=== PATIENT | male | born 1965 | race Caucasian/White ===

== ENCOUNTER 2024-09-10 18:30 | Emergency (ER) | payer OTHER ==
[~2024-09-10] VITALS: Ht 180.3 cm; Wt 93.9 kg
[2024-09-10] MEDS ORDERED: ONDANSETRON ODT 4 MG TAB.RAPDIS ONE (20:39)
[2024-09-10] MEDS ORDERED: HYDROMORPHONE 1 MG/1 ML DISP.SYRIN ONE (20:39)
[2024-09-10] MEDS ORDERED: predniSONE 50 MG TABLET ONE (20:39)
[2024-09-10] MEDS: predniSONE 50 MG TABLET PO ONE (20:46)
[2024-09-10] MEDS: ONDANSETRON ODT 4 MG TAB.RAPDIS SL ONE (20:46)
[2024-09-10] MEDS: HYDROMORPHONE 1 MG/1 ML DISP.SYRIN IM ONE (20:47)
[2024-09-10 20:56] VITALS: BP 150/80; O2SAT 98
== END 2024-09-10 21:01 | disposition home or self-care (01) ==
LOC: ER 18:30
DX: M51.360 Other intervertebral disc degeneration, lumbar region with discogenic back pain only (principal); Z88.7 Allergy status to serum and vaccine
CPT/HCPCS: 99283; 96372; J1171; J7512; A4606; A4663; Q0162

== ENCOUNTER 2024-09-22 17:26 | Emergency (ER) | payer OTHER ==
[~2024-09-22] VITALS: Ht 180.3 cm; Wt 93.9 kg
[2024-09-22 18:15] VITALS: O2SAT 97
[2024-09-22] MEDS ORDERED: IBUP-1955 PO (18:29)
[2024-09-22] MEDS ORDERED: HYDR-3972 PO (18:29)
[2024-09-22] MEDS ORDERED: GABA300C PO (18:29)
== END 2024-09-22 18:36 | disposition home or self-care (01) ==
LOC: ER 17:36
DX: Z76.0 Encounter for issue of repeat prescription (principal); Z79.899 Other long term (current) drug therapy; Z88.7 Allergy status to serum and vaccine; Z60.2 Problems related to living alone; Z87.39 Personal history of other diseases of the musculoskeletal system and connective tissue
CPT/HCPCS: A4606; A4663

== ENCOUNTER 2024-10-06 19:13 | Emergency (ER) | payer OTHER ==
[~2024-10-06] VITALS: Ht 180.3 cm; Wt 95.3 kg
[~2024-10-06 19:13] MED LIST: GABA300C PO; HYDR-3972 PO; IBUP-1955 PO
[2024-10-06] MEDS ORDERED: HYDR-3972 PO (22:13)
[2024-10-06] MEDS ORDERED: GABA300C PO (22:13)
[2024-10-06] MEDS ORDERED: IBUP-1955 PO (22:13)
[2024-10-06] MEDS ORDERED: GABAPENTIN 300 MG CAPSULE ONE (22:14)
[2024-10-06] MEDS ORDERED: HYDROCODONE/APAP 5-325MG TABLET ONE (22:15)
[2024-10-06] MEDS ORDERED: IBUPROFEN 600 MG TABLET ONE (22:15)
[2024-10-06] MEDS: IBUPROFEN 600 MG TABLET PO ONE (22:18)
[2024-10-06] MEDS: HYDROCODONE/APAP 5-325MG TABLET PO ONE (22:18)
[2024-10-06] MEDS: GABAPENTIN 300 MG CAPSULE PO ONE (22:18)
[2024-10-06 22:19] VITALS: BP 145/80; O2SAT 98
== END 2024-10-06 22:20 | disposition home or self-care (01) ==
LOC: ER 19:19
DX: G89.29 Other chronic pain (principal); M54.42 Lumbago with sciatica, left side; Z76.0 Encounter for issue of repeat prescription; Z79.899 Other long term (current) drug therapy; Z60.2 Problems related to living alone; Z88.7 Allergy status to serum and vaccine
CPT/HCPCS: A4606; A4663

== ENCOUNTER 2024-10-17 15:47 | Emergency (ER) | payer OTHER ==
[~2024-10-17] VITALS: Ht 180.3 cm; Wt 93.9 kg
[2024-10-17] MEDS ORDERED: IBUP-1955 PO (16:23)
[2024-10-17] MEDS ORDERED: GABA300C PO (16:23)
[2024-10-17] MEDS ORDERED: HYDR-3972 PO (16:23)
[2024-10-17 16:38] VITALS: BP 132/86; O2SAT 98
== END 2024-10-17 16:51 | disposition home or self-care (01) ==
LOC: ER 15:47
DX: M51.369 Other intervertebral disc degeneration, lumbar region without mention of lumbar back pain or lower extremity pain (principal); Z76.0 Encounter for issue of repeat prescription; Z79.1 Long term (current) use of non-steroidal anti-inflammatories (NSAID); Z79.899 Other long term (current) drug therapy; Z88.7 Allergy status to serum and vaccine; Z87.39 Personal history of other diseases of the musculoskeletal system and connective tissue; Z60.2 Problems related to living alone
CPT/HCPCS: A4606; A4663

== ENCOUNTER 2024-10-26 10:35 | Emergency (ER) | payer OTHER ==
[~2024-10-26] VITALS: Ht 182.9 cm; Wt 95.3 kg
[2024-10-26] MEDS ORDERED: ONDANSETRON 4 MG/2 ML VIAL ONE (11:28)
[2024-10-26] MEDS ORDERED: HYDROMORPHONE 1 MG/1 ML DISP.SYRIN ONE (11:28)
[2024-10-26 11:31] LABS: BASOPHILS % (AUTO) 0.4 % (0.0-2.0); EOSINOPHILS # (AUTO) 0.1 K/uL (0.0-0.7); EOSINOPHILS % (AUTO) 0.9 % (0.0-7.0); HEMATOCRIT 49.5 % (36.7-47.1); HEMOGLOBIN 16.3 g/dL (12.5-16.3); LYMPHOCYTES # (AUTO) 0.7 K/uL (0.8-4.8); LYMPHOCYTES % (AUTO) 9.1 % (20.5-51.5); MEAN CORPUSCULAR HEMOGLOBIN 28.4 uug (23.8-33.4); MEAN CORPUSCULAR HGB CONC 33 g/dL (32.5-36.3); MEAN CORPUSCULAR VOLUME 86.3 fL (73.0-96.2); MONOCYTES # (AUTO) 0.6 K/uL (0.1-1.30); MONOCYTES % (AUTO) 7.7 % (0.0-11.0); NEUTROPHILS # (AUTO) 6.6 K/uL (1.8-8.9); NEUTROPHILS % (AUTO) 81.9 % (38.5-71.5); PLATELET COUNT (AUTO) 220 K/uL (152-348); RED BLOOD CELL COUNT(AUTO) 5.74 MIL/uL (4.06-5.63); RED CELL DISTRIBUTION WIDTH 14.8 % (12.1-16.2); WHITE BLOOD COUNT (AUTO) 8.1 K/uL (3.6-10.2)
[2024-10-26] MEDS: IV NORMAL SALINE 1000 ML BAG IV ONE (11:37)
[2024-10-26] MEDS: HYDROMORPHONE 1 MG/1 ML DISP.SYRIN IV ONE ×2 (11:37→12:52)
[2024-10-26] MEDS: ONDANSETRON 4 MG/2 ML VIAL IV ONE (11:37)
[2024-10-26 11:38] LABS: DIFFERENTIAL COMMENT 1
[2024-10-26 11:44] LABS: *BILIRUBIN,URIN NEGATIVE (NEGATIVE); *BLOOD, URINE NEGATIVE (NEGATIVE); *CLARITY,URINE CLEAR (CLEAR); *COLOR,URINE YELLOW (YELLOW); *KETONES,URINE NEGATIVE (NEGATIVE); *PROTEIN,URINE TRACE (NEGATIVE); *UROBILINOGEN,URINE 0.2 E.U./dl (NORMAL); LEUKOCYTE ESTERASE ,URINE NEGATIVE (NEGATIVE); NITRITE, URINE NEGATIVE (NEGATIVE); PH,URINE 5.5 (5.0-8.0); UGLUCOSE NEGATIVE (NEGATIVE)
[2024-10-26 11:46] LABS: CALCIUM 8.9 mg/dL (8.5-10.1); POTASSIUM 4.4 mmol/L (3.5-5.1)
[2024-10-26 11:51] LABS: ALBUMIN 3.3 g/dL (3.4-5.0); BILIRUBIN,DIRECT 0.2 mg/dL (0.0-0.2); BILIRUBIN,TOTAL 0.7 mg/dL (0.2-1.0); TOTAL PROTEIN, SERUM 7.2 g/dL (6.4-8.2)
[2024-10-26] MEDS ORDERED: IV NORMAL SALINE 250 ML IV ONE (12:05)
[2024-10-26] MEDS ORDERED: SWABABLE VALVE TRANSFER SET EA MC ONE (12:05)
[2024-10-26] MEDS ORDERED: IOHEXOL 300MG/ML 100 ML INFUS..BTL ONE (12:05)
[2024-10-26 12:43] LABS: BACTERIA,URINE MODERATE /HPF (NONE SEEN); URINE AMORPHOUS URATE MANY /HPF; WBC,URINE 0-3 /HPF (0-3)
[2024-10-26] MEDS ORDERED: HYDROMORPHONE 2 MG/1 ML DISP.SYRIN ONE (12:49)
[2024-10-26] MEDS ORDERED: AMOX-430 PO (13:27)
[2024-10-26] MEDS ORDERED: HYDR-3980 PO (13:27)
[2024-10-26] MEDS ORDERED: diphenhydrAMINE 50 MG/1 ML VIAL ONE (13:43)
[2024-10-26] MEDS: PIPERACILLIN SODIUM/TAZOBACTAM 4.5 G in IV DEXTROSE 5% 50 ML IV SCH (13:46)
[2024-10-26 14:24] VITALS: BP 121/71; TEMP 98.3; O2SAT 97
[2024-10-27] MEDS ORDERED: diphenhydrAMINE 50 MG/1 ML VIAL IV ONE (18:30)
== END 2024-10-26 14:24 | disposition home or self-care (01) ==
LOC: ER 10:38
DX: K57.32 Diverticulitis of large intestine without perforation or abscess without bleeding (principal); Z79.1 Long term (current) use of non-steroidal anti-inflammatories (NSAID); Z79.899 Other long term (current) drug therapy; Z88.7 Allergy status to serum and vaccine; Z87.39 Personal history of other diseases of the musculoskeletal system and connective tissue; Z60.2 Problems related to living alone
CPT/HCPCS: 99285; 74177; 96365; 96375; 96361; 80076; 80048; 81001; 83735; 85025; 87086; 36415; 96376; J2405; Q9967; J2543; J1171 ×2; J7040; A4606; A4663; J1200

== ENCOUNTER 2024-11-04 14:59 | Emergency (ER) | payer OTHER ==
[~2024-11-04] VITALS: Ht 180.3 cm; Wt 95.3 kg
[~2024-11-04 14:59] MED LIST changes: +AMOX-430 PO; +HYDR-3980 PO
[2024-11-04] MEDS: ONDANSETRON 4 MG/2 ML VIAL IV ONE (16:30)
[2024-11-04] MEDS ORDERED: ONDANSETRON 4 MG/2 ML VIAL ONE (16:42)
[2024-11-04] MEDS ORDERED: HYDROMORPHONE 1 MG/1 ML DISP.SYRIN ONE (16:43)
[2024-11-04 16:44] LABS: BASOPHILS % (AUTO) 0.2 % (0.0-2.0); EOSINOPHILS # (AUTO) 0.1 K/uL (0.0-0.7); EOSINOPHILS % (AUTO) 1.2 % (0.0-7.0); HEMATOCRIT 50.7 % (36.7-47.1); HEMOGLOBIN 16.7 g/dL (12.5-16.3); LYMPHOCYTES # (AUTO) 1.3 K/uL (0.8-4.8); LYMPHOCYTES % (AUTO) 12.3 % (20.5-51.5); MEAN CORPUSCULAR HEMOGLOBIN 28.4 uug (23.8-33.4); MEAN CORPUSCULAR HGB CONC 33 g/dL (32.5-36.3); MEAN CORPUSCULAR VOLUME 86.3 fL (73.0-96.2); MONOCYTES # (AUTO) 0.8 K/uL (0.1-1.30); NEUTROPHILS # (AUTO) 8.3 K/uL (1.8-8.9); NEUTROPHILS % (AUTO) 78.3 % (38.5-71.5); PLATELET COUNT (AUTO) 263 K/uL (152-348); RED BLOOD CELL COUNT(AUTO) 5.87 MIL/uL (4.06-5.63); WHITE BLOOD COUNT (AUTO) 10.6 K/uL (3.6-10.2)
[2024-11-04 16:52] LABS: DIFFERENTIAL COMMENT 1
[2024-11-04] MEDS: HYDROMORPHONE 1 MG/1 ML DISP.SYRIN IV ONE (16:56)
[2024-11-04] MEDS: IV NORMAL SALINE 1000 ML BAG IV ONE (16:57)
[2024-11-04 17:05] LABS: ALANINE AMINOTRANSFERASE 39 U/L (16-63); ALBUMIN 3.5 g/dL (3.4-5.0); ALKALINE PHOSPHATASE 84 U/L (50-136); ASPARTATE AMINOTRANSFERASE 22 U/L (15-37); BILIRUBIN,DIRECT 0.1 mg/dL (0.0-0.2); BILIRUBIN,TOTAL 0.7 mg/dL (0.2-1.0); CARBON DIOXIDE 30 mmol/L (21-32); CHLORIDE 102 mmol/L (98-107); CREATININE 1.2 mg/dL (0.6-1.3); GLUCOSE 94 mg/dL (74-106); LIPASE 34 U/L (16-77); POTASSIUM 4.4 mmol/L (3.5-5.1); SODIUM SERUM 139 mmol/L (136-145); TOTAL PROTEIN, SERUM 7.6 g/dL (6.4-8.2); UREA NITROGEN, BLOOD 24 mg/dL (7-18)
[2024-11-04 18:14] LABS: *BILIRUBIN,URIN NEGATIVE (NEGATIVE); *BLOOD, URINE NEGATIVE (NEGATIVE); *CLARITY,URINE CLEAR (CLEAR); *COLOR,URINE YELLOW (YELLOW); *KETONES,URINE NEGATIVE (NEGATIVE); *PROTEIN,URINE NEGATIVE (NEGATIVE); *UROBILINOGEN,URINE 0.2 E.U./dl (NORMAL); LEUKOCYTE ESTERASE ,URINE NEGATIVE (NEGATIVE); NITRITE, URINE NEGATIVE (NEGATIVE); UGLUCOSE NEGATIVE (NEGATIVE)
[2024-11-04] MEDS ORDERED: SWABABLE VALVE TRANSFER SET EA MC ONE (18:16)
[2024-11-04] MEDS ORDERED: IOHEXOL 300MG/ML 100 ML INFUS..BTL ONE (18:16)
[2024-11-04] MEDS ORDERED: IV NORMAL SALINE 250 ML IV ONE (18:16)
[2024-11-04] MEDS ORDERED: METR500T PO (20:35)
[2024-11-04] MEDS ORDERED: LEVO500T90 PO (20:35)
[2024-11-04] MEDS ORDERED: levoFLOXacin 500 MG/D5W 100 ML ONE (20:44)
[2024-11-04] MEDS: levoFLOXacin 500 MG/D5W 100ML PIGGYBACK IV ONE (20:50)
[2024-11-04] MEDS ORDERED: KETO10TA2 PO (21:33)
[2024-11-04] MEDS ORDERED: KETOROLAC TROMETHAMINE 30 MG INJ ONE (21:37)
[2024-11-04] MEDS: KETOROLAC TROMETHAMINE 30 MG INJ IVP ONE (21:38)
[2024-11-04 21:48] VITALS: BP 124/69; TEMP 97.9; O2SAT 98
[2024-11-05] MEDS ORDERED: HYDR-3974 PO (16:41)
[2024-11-05] MEDS ORDERED: ONDA4TAB5 PO (16:41)
== END 2024-11-04 21:50 | disposition home or self-care (01) ==
LOC: ER 14:59
DX: K57.32 Diverticulitis of large intestine without perforation or abscess without bleeding (principal); Z79.1 Long term (current) use of non-steroidal anti-inflammatories (NSAID); Z79.899 Other long term (current) drug therapy; Z88.7 Allergy status to serum and vaccine; Z87.19 Personal history of other diseases of the digestive system; Z87.39 Personal history of other diseases of the musculoskeletal system and connective tissue; Z60.2 Problems related to living alone
CPT/HCPCS: 99285; 74177; 96365; 96375; 71045; 96361; 80076; 80048; 81003; 83690; 85025; 87040 ×2; 84484; 36415; 93005; 83605; J1885; J1956; J2405; Q9967; J1171; J7040 ×2; A4606; A4663

== ENCOUNTER 2024-11-05 14:41 | Emergency (ER) | payer OTHER ==
[~2024-11-05] VITALS: Ht 180.3 cm; Wt 95.3 kg
[~2024-11-05 14:41] MED LIST changes: +KETO10TA2 PO; +LEVO500T90 PO; +METR500T PO
[2024-11-05 15:01] LABS: BASOPHILS % (AUTO) 0.2 % (0.0-2.0); EOSINOPHILS # (AUTO) 0.1 K/uL (0.0-0.7); EOSINOPHILS % (AUTO) 0.6 % (0.0-7.0); HEMATOCRIT 49.4 % (36.7-47.1); HEMOGLOBIN 16.2 g/dL (12.5-16.3); LYMPHOCYTES # (AUTO) 1.2 K/uL (0.8-4.8); LYMPHOCYTES % (AUTO) 10.8 % (20.5-51.5); MEAN CORPUSCULAR HEMOGLOBIN 28.2 uug (23.8-33.4); MEAN CORPUSCULAR HGB CONC 33 g/dL (32.5-36.3); MEAN CORPUSCULAR VOLUME 85.7 fL (73.0-96.2); MONOCYTES # (AUTO) 0.9 K/uL (0.1-1.30); MONOCYTES % (AUTO) 8.1 % (0.0-11.0); NEUTROPHILS # (AUTO) 8.7 K/uL (1.8-8.9); NEUTROPHILS % (AUTO) 80.3 % (38.5-71.5); PLATELET COUNT (AUTO) 242 K/uL (152-348); RED BLOOD CELL COUNT(AUTO) 5.76 MIL/uL (4.06-5.63); RED CELL DISTRIBUTION WIDTH 14.8 % (12.1-16.2); WHITE BLOOD COUNT (AUTO) 10.8 K/uL (3.6-10.2)
[2024-11-05 15:09] LABS: DIFFERENTIAL COMMENT 1
[2024-11-05] MEDS ORDERED: ONDANSETRON 4 MG/2 ML VIAL ONE (15:11)
[2024-11-05] MEDS ORDERED: MORPHINE SULFATE 4 MG/1 ML DISP.SYRIN ONE (15:12)
[2024-11-05 15:13] LABS: CALCIUM 8.9 mg/dL (8.5-10.1); CREATININE 1.1 mg/dL (0.6-1.3); POTASSIUM 4.2 mmol/L (3.5-5.1)
[2024-11-05 15:19] LABS: ALBUMIN 3.6 g/dL (3.4-5.0); BILIRUBIN,DIRECT 0.1 mg/dL (0.0-0.2); BILIRUBIN,TOTAL 0.8 mg/dL (0.2-1.0); TOTAL PROTEIN, SERUM 7.5 g/dL (6.4-8.2)
[2024-11-05] MEDS: MORPHINE SULFATE 4 MG/1 ML DISP.SYRIN IV ONE (15:19)
[2024-11-05] MEDS: ONDANSETRON 4 MG/2 ML VIAL IV ONE (15:19)
[2024-11-05] MEDS: IV NORMAL SALINE 1000 ML BAG IV ONE (15:19)
[2024-11-05 15:45] LABS: *BILIRUBIN,URIN NEGATIVE (NEGATIVE); *BLOOD, URINE NEGATIVE (NEGATIVE); *CLARITY,URINE CLEAR (CLEAR); *COLOR,URINE YELLOW (YELLOW); *KETONES,URINE NEGATIVE (NEGATIVE); *PROTEIN,URINE NEGATIVE (NEGATIVE); *UROBILINOGEN,URINE 0.2 E.U./dl (NORMAL); LEUKOCYTE ESTERASE ,URINE NEGATIVE (NEGATIVE); NITRITE, URINE NEGATIVE (NEGATIVE); UGLUCOSE NEGATIVE (NEGATIVE)
[2024-11-05] MEDS ORDERED: HYDR-3974 PO (16:41)
[2024-11-05] MEDS ORDERED: ONDA4TAB5 PO (16:41)
[2024-11-05 17:17] VITALS: BP 131/76; TEMP 98; O2SAT 98
== END 2024-11-05 16:55 | disposition home or self-care (01) ==
LOC: ER 14:41
DX: K57.32 Diverticulitis of large intestine without perforation or abscess without bleeding (principal); R11.0 Nausea; Z76.0 Encounter for issue of repeat prescription; Z79.1 Long term (current) use of non-steroidal anti-inflammatories (NSAID); Z79.899 Other long term (current) drug therapy; Z88.7 Allergy status to serum and vaccine; Z87.19 Personal history of other diseases of the digestive system; Z87.39 Personal history of other diseases of the musculoskeletal system and connective tissue; Z60.2 Problems related to living alone
CPT/HCPCS: 99284; 96374; 96361; 96375; 80076; 80048; 81003; 83690; 85025; 36415; J2405; J2270; J7040; A4606; A4663

== ENCOUNTER 2024-12-02 20:55 | Emergency (ER) | payer OTHER ==
[~2024-12-02] VITALS: Ht 180.3 cm; Wt 92.1 kg
[~2024-12-02 20:55] MED LIST changes: +HYDR-3974 PO; +ONDA4TAB5 PO
[2024-12-02 21:28] VITALS: O2SAT 99
== END 2024-12-02 22:31 | disposition left against medical advice (07) ==
LOC: ER 21:04
DX: R10.30 Lower abdominal pain, unspecified (principal); R11.0 Nausea; R19.7 Diarrhea, unspecified; M54.50 Low back pain, unspecified; G89.29 Other chronic pain; R35.0 Frequency of micturition; Z79.1 Long term (current) use of non-steroidal anti-inflammatories (NSAID); Z79.899 Other long term (current) drug therapy; Z88.7 Allergy status to serum and vaccine; Z87.19 Personal history of other diseases of the digestive system; Z60.2 Problems related to living alone
CPT/HCPCS: A4606; A4663

== ENCOUNTER 2025-01-14 13:15 | Emergency (ER) | payer OTHER ==
[~2025-01-14] VITALS: Ht 180.3 cm; Wt 89.8 kg
[2025-01-14 13:15] VITALS: BP 130/77; O2SAT 97
[2025-01-14] MEDS ORDERED: PIPERACILLIN/TAZOBACTAM/D5W 50 ML IV ONE (13:43)
[2025-01-14 13:45] LABS: PLATELET COUNT (AUTO) 206 K/uL (152-348); RED BLOOD CELL COUNT(AUTO) 6.01 MIL/uL (4.06-5.63); RED CELL DISTRIBUTION WIDTH 15.8 % (12.1-16.2); WHITE BLOOD COUNT (AUTO) 7.2 K/uL (3.6-10.2)
[2025-01-14] MEDS: IV NORMAL SALINE 1000 ML BAG IV ONE (13:52)
[2025-01-14] MEDS: PIPERACILLIN SODIUM/TAZOBACTAM 3.375 G in IV DEXTROSE 5% 50 ML IV ONE (13:52)
[2025-01-14 13:54] LABS: CREATININE 1.0 mg/dL (0.6-1.3); SODIUM SERUM 139 mmol/L (136-145); UREA NITROGEN, BLOOD 20 mg/dL (7-18)
[2025-01-14 14:06] LABS: *BLOOD, URINE NEGATIVE (NEGATIVE); *CLARITY,URINE CLEAR (CLEAR); *COLOR,URINE YELLOW (YELLOW); *KETONES,URINE NEGATIVE (NEGATIVE); *PROTEIN,URINE TRACE (NEGATIVE); *UROBILINOGEN,URINE 1.0 E.U./dl (NORMAL); LEUKOCYTE ESTERASE ,URINE NEGATIVE (NEGATIVE); NITRITE, URINE NEGATIVE (NEGATIVE); UGLUCOSE NEGATIVE (NEGATIVE)
[2025-01-14 14:07] LABS: *BILIRUBIN,URIN 1+ (NEGATIVE)
[2025-01-14 14:08] LABS: ASPARTATE AMINOTRANSFERASE 13 U/L (15-37); TOTAL PROTEIN, SERUM 7.4 g/dL (6.4-8.2)
[2025-01-14] MEDS ORDERED: IOHEXOL 300MG/ML 100 ML INFUS..BTL ONE (14:19)
[2025-01-14] MEDS ORDERED: SWABABLE VALVE TRANSFER SET EA MC ONE (14:19)
[2025-01-14] MEDS ORDERED: IV NORMAL SALINE 250 ML IV ONE (14:19)
[2025-01-14 14:33] LABS: SQUAMOUS EPITHELIAL CELL,UR FEW /HPF (NONE SEEN)
[2025-01-14 14:34] LABS: URINE AMORPHOUS URATE FEW /HPF
[2025-01-14] MEDS: ONDANSETRON 4 MG/2 ML VIAL IV ONE (14:54)
[2025-01-14] MEDS: HYDROMORPHONE 1 MG/1 ML DISP.SYRIN IV ONE (14:54)
[2025-01-14] MEDS ORDERED: HYDROMORPHONE 1 MG/1 ML DISP.SYRIN ONE (14:54)
[2025-01-14] MEDS ORDERED: ONDANSETRON 4 MG/2 ML VIAL ONE (14:54)
[2025-01-14] MEDS ORDERED: HYDR-3980 PO (15:37)
[2025-01-14] MEDS ORDERED: AMOX-430 PO (15:40)
[2025-01-14] MEDS ORDERED: ONDA4TAB5 PO (16:09)
== END 2025-01-14 15:54 | disposition home or self-care (01) ==
LOC: ER 13:15
DX: K57.32 Diverticulitis of large intestine without perforation or abscess without bleeding (principal); R06.00 Dyspnea, unspecified; R10.32 Left lower quadrant pain; Z79.1 Long term (current) use of non-steroidal anti-inflammatories (NSAID); Z79.899 Other long term (current) drug therapy; Z88.7 Allergy status to serum and vaccine; Z87.19 Personal history of other diseases of the digestive system; Z60.2 Problems related to living alone
CPT/HCPCS: 36415; 71045; 83605; 83690; 84484; 85025; 85730; 87040; 87086; A4606; A4663; J1171; J2405; J2543; J7040; Q9967

== ENCOUNTER 2025-01-15 16:52 | Inpatient (IN) | payer OTHER ==
[~2025-01-15] VITALS: Ht 180.3 cm; Wt 89.8 kg
[2025-01-15 17:33] VITALS: BP 140/88
[2025-01-15 19:23] LABS: PLATELET COUNT (AUTO) 194 K/uL (152-348); RED BLOOD CELL COUNT(AUTO) 5.65 MIL/uL (4.06-5.63); RED CELL DISTRIBUTION WIDTH 15.7 % (12.1-16.2); WHITE BLOOD COUNT (AUTO) 11.0 K/uL (3.6-10.2)
[2025-01-15 19:32] LABS: CREATININE 0.9 mg/dL (0.6-1.3); SODIUM SERUM 139.0 mmol/L (136-145); UREA NITROGEN, BLOOD 16.0 mg/dL (7-18)
[2025-01-15 19:38] LABS: ASPARTATE AMINOTRANSFERASE 8.0 U/L (15-37); TOTAL PROTEIN, SERUM 7.0 g/dL (6.4-8.2)
[2025-01-15] MEDS ORDERED: ONDANSETRON ODT 4 MG TAB.RAPDIS ONE (19:48)
[2025-01-15] MEDS ORDERED: OXYCODONE/APAP 5-325 MG TABLET ONE (19:48)
[2025-01-15] MEDS: OXYCODONE/APAP 5-325 MG TABLET PO ONE (19:53)
[2025-01-15] MEDS: ONDANSETRON ODT 4 MG TAB.RAPDIS SL ONE (19:53)
[2025-01-15] MEDS ORDERED: REMEDY ESSENTIAL ZINC PASTE 113 GM TP PRN (21:00)
[2025-01-15] MEDS ORDERED: ACETAMINOPHEN 325 MG TABLET PO PRN (21:00)
[2025-01-15] MEDS ORDERED: MAGNESIUM HYDROXIDE 30 ML LIQUID UDC PO PRN (21:00)
[2025-01-15] MEDS: IV NS 1000 ML 1,000 ML IV PRN (21:49)
[2025-01-15 21:54] VITALS: BP 127/68; TEMP 99.3; O2SAT 96
[2025-01-15] MEDS: HYDROCODONE/APAP 10-325 MG TABLET PO PRN (22:30)
[2025-01-15] MEDS ORDERED: PIPERACILLIN SODIUM/TAZO 3.375 GM VIAL ONE (22:44)
[2025-01-15] MEDS ORDERED: PIPERACILLIN/TAZOBACTAM/D5W 50 ML IV ONE (22:45)
[2025-01-15] MEDS: TRAZODONE 100 MG TABLET PO SCH (22:57)
[2025-01-15] MEDS: PIPERACILLIN SODIUM/TAZOBACTAM 3.375 G in IV DEXTROSE 5% 50 ML IV SCH (22:57)
[2025-01-16] MEDS ORDERED: PIPERACILLIN SODIUM/TAZOBACTAM 3.375 G in IV DEXTROSE 5% 50 ML IV SCH
[2025-01-16] MEDS: ONDANSETRON 4 MG/2 ML VIAL IV PRN (06:08)
[2025-01-16] MEDS ORDERED: PIPERACILLIN/TAZOBACTAM/D5W 50 ML IV ONE (06:21)
[2025-01-16 07:01] VITALS: BP 113/48; TEMP 97.7; O2SAT 96
[2025-01-16 07:07] LABS: PLATELET COUNT (AUTO) 187 K/uL (152-348); RED BLOOD CELL COUNT(AUTO) 5.33 MIL/uL (4.06-5.63); RED CELL DISTRIBUTION WIDTH 15.7 % (12.1-16.2); WHITE BLOOD COUNT (AUTO) 7.0 K/uL (3.6-10.2)
[2025-01-16 07:19] LABS: ASPARTATE AMINOTRANSFERASE < 5 U/L (15-37); CREATININE 1.0 mg/dL (0.6-1.3); SODIUM SERUM 135 mmol/L (136-145); TOTAL PROTEIN, SERUM 6.3 g/dL (6.4-8.2); UREA NITROGEN, BLOOD 15 mg/dL (7-18)
[2025-01-16] MEDS: GABAPENTIN 300 MG CAPSULE PO SCH (08:08)
[2025-01-16] MEDS: PANTOPRAZOLE SODIUM 40 MG VIAL IV SCH (08:08)
[2025-01-16] MEDS ORDERED: OXYC5CAP18 PO (09:47)
[2025-01-16] MEDS ORDERED: GABA300C PO (09:48)
[2025-01-16] MEDS ORDERED: TRAZ150T75 PO (09:49)
[2025-01-16] MEDS ORDERED: METH-806 PO (09:50)
[2025-01-16] MEDS ORDERED: LIDO700A30 TP (09:51)
[2025-01-16 11:02] VITALS: BP 133/53; TEMP 98.3; O2SAT 97
[2025-01-16] MEDS ORDERED: PIPERACILLIN SODIUM/TAZOBACTAM 3.375 G in IV DEXTROSE 5% 100 ML IV SCH (14:00)
== END 2025-01-16 13:55 | disposition home or self-care (01) | DRG 244 ==
LOC: ER 17:02 → MEDSURG3 19:20
PROVIDERS: ADMIT Nurse Practitioner Acute Care; ATTEND Nurse Practitioner Acute Care
DX: K57.30 Diverticulosis of large intestine without perforation or abscess without bleeding (principal); R16.0 Hepatomegaly, not elsewhere classified; R10.32 Left lower quadrant pain; D72.829 Elevated white blood cell count, unspecified; G89.4 Chronic pain syndrome; R63.4 Abnormal weight loss; Z87.19 Personal history of other diseases of the digestive system
CPT/HCPCS: 36415; 83690; 83735; 84100; 85025; A4663; G0378; J2405; J2470; J2543; J7040; Q0162